=== PATIENT | male | born 1950 | race Caucasian/White ===

== ENCOUNTER → 2017-09-08 | Outpatient (CLI) | payer MEDICARE, OTHER | LOC: COL.LAB 10:21 | DX: Z96.641 Presence of right artificial hip joint (principal) ==

== ENCOUNTER → 2018-03-09 | Outpatient (CLI) | payer MEDICARE, OTHER ==
[2018-03-09 09:49] LABS: BASO % 0.6 % (0.0-2.0); EOS # 0.2 (0.0-0.7); EOS % 2.2 % (0-4.0); GRAN # 4.4 (1.4-6.5); GRAN % 64.2 % (42.2-75.2); HEMATOCRIT 41.3 % (42.0-52.0); HEMOGLOBIN 14.1 g/dl (13.5-18.0); LYMPH # 1.6 (1.2-3.4); LYMPH % 23.4 % (20.0-51.0); MEAN CELL VOLUME 86 fl (80.0-100.0); MEAN CORPUSCULAR HEMOGLOBIN 30 pg (27.0-31.0); MEAN CORPUSCULAR HGB CONC 34 g/dl (33.0-37.0); MEAN PLATELET VOLUME 9.4 fl (7.4-10.4); MONO # 0.6 (0.1-0.6); MONO % 9.3 % (1.7-9.3); PLATELET COUNT 219 K/mm3 (130-400); RED BLOOD COUNT 4.78 M/mm3 (4.20-5.60)
[2018-03-09 10:27] LABS: ERYTHROCYTE SEDIMENTATION RATE 7 mm/hr (0-30)
== END ==
LOC: COL.LAB 09:16
PROVIDERS: Orthopaedic Surgery
DX: M25.551 Pain in right hip (principal)

== ENCOUNTER → 2018-03-14 | Outpatient (CLI) | payer MEDICARE, OTHER | LOC: COL.RAD 08:50 | DX: R93.7 Abnormal findings on diagnostic imaging of other parts of musculoskeletal system (principal) | CPT/HCPCS: A9503 ==

== ENCOUNTER → 2018-03-17 | Outpatient (CLI) | payer MEDICARE, OTHER ==
[2018-03-17 12:54] LABS: SYNOVIAL FLUID APPEARANCE HAZY
[2018-03-17 12:55] LABS: SYNOVIAL FL. MONONUCLEAR 73.5 % (0-75); SYNOVIAL FLUID RBC 5000 /mm3 (0-0); SYNOVIAL FLUID WBC 480 /mm3 (200-600)
[2018-03-17 12:57] LABS: SYNOVIAL FLUID COLOR YELLOW
== END ==
LOC: COL.RAD 10:04
PROVIDERS: Orthopaedic Surgery
DX: M25.551 Pain in right hip (principal); Z96.641 Presence of right artificial hip joint

== ENCOUNTER → 2018-05-02 | Outpatient (CLI) | payer MEDICARE, OTHER | LOC: COL.LAB 14:50 | DX: Z01.812 Encounter for preprocedural laboratory examination (principal) ==

== ENCOUNTER → 2018-05-09 | Outpatient (REF) | LOC: ZMSC 13:31 | DX: Z01.89 Encounter for other specified special examinations (principal) ==

== ENCOUNTER → 2021-01-16 | Outpatient (CLI) | payer MEDICARE, OTHER | LOC: COL.RAD 09:14 | DX: M25.551 Pain in right hip (principal); Z96.641 Presence of right artificial hip joint | CPT/HCPCS: A9503 ==